=== PATIENT | female | born 1985 | race American Indian/Alaskan Native ===

== ENCOUNTER 2017-05-29 01:20 | Emergency (ER) | payer BC, OTHER ==
[2017-05-29 01:31] VITALS: BP 131/78
[2017-05-29] MEDS ORDERED: ULTRAM PO ONE (01:52)
--- NOTE | 2017-05-29 02:11 | Emergency Department Report ---
ED ENT HPI - General Chief complaint: Dental/Oral Stated complaint: TOOTHACHE Time Seen by Provider: 05/29/17 01:47 Source: patient Mode of arrival: Ambulatory Limitations: No Limitations - History of Present Illness Initial comments: dental pain x 2 week hx infected dental carries complaint: tooth pain Onset/Timin -: week(s) Location: tooth # (19) Severity: moderate Severity scale (0 -10): 5 Quality: aching Consistency: constant Improves with: none Worsens with: other (hot cold sensation) Associated Symptoms: toothache. denies: fever, cough, gum swelling, pain with swallowing, sore throat, tinnitus, hearing loss, discharge from ear, rhinorrhea - Related Data Previous Rx's Medication Instructions Recorded Last Taken Type Amoxicillin 500 mg PO TID #30 capsule 05/29/17 Unknown Rx Chlorhexidine Mouthwash [Peridex] 15 ml MM BID #1 bottle 05/29/17 Unknown Rx traMADol [Ultram 50 MG tab] 50 mg PO Q8HR PRN #20 tablet 05/29/17 Unknown Rx Allergies Allergy/AdvReac Type Severity Reaction Status Date / Time epidural Allergy Itching Uncoded 05/29/17 01:32 ED Dental HPI - General Chief complaint: Dental/Oral Stated complaint: TOOTHACHE Time Seen by Provider: 05/29/17 01:47 Source: patient Mode of arrival: Ambulatory Limitations: No Limitations - Related Data Previous Rx's Medication Instructions Recorded Last Taken Type Amoxicillin 500 mg PO TID #30 capsule 05/29/17 Unknown Rx Chlorhexidine Mouthwash [Peridex] 15 ml MM BID #1 bottle 05/29/17 Unknown Rx traMADol [Ultram 50 MG tab] 50 mg PO Q8HR PRN #20 tablet 05/29/17 Unknown Rx Allergies Allergy/AdvReac Type Severity Reaction Status Date / Time epidural Allergy Itching Uncoded 05/29/17 01:32 ED Review of Systems ROS: Stated complaint: TOOTHACHE Other details as noted in HPI Constitutional: denies: chills, fever Eyes: denies: eye pain, eye discharge, vision change ENT: dental pain Respiratory: denies: cough, shortness of breath, wheezing Cardiovascular: denies: chest pain, palpitations Endocrine: no symptoms reported Gastrointestinal: denies: abdominal pain, nausea, diarrhea Genitourinary: denies: urgency, dysuria, discharge Musculoskeletal: denies: back pain, joint swelling, arthralgia Skin: denies: rash, lesions Neurological: denies: headache, weakness, paresthesias Psychiatric: denies: anxiety, depression Hematological/Lymphatic: denies: easy bleeding, easy bruising ED Past Medical Hx - Past Medical History Previous Medical History?: No - Surgical History Additional Surgical History: C-secdtion X3 - Social History Smoking Status: Never Smoker Substance Use Type: None - Medications Home Medications: Home Medications Medication Instructions Recorded Confirmed Last Taken Type Amoxicillin 500 mg PO TID #30 capsule 05/29/17 Unknown Rx Chlorhexidine Mouthwash [Peridex] 15 ml MM BID #1 bottle 05/29/17 Unknown Rx traMADol [Ultram 50 MG tab] 50 mg PO Q8HR PRN #20 tablet 05/29/17 Unknown Rx ED Physical Exam - General Limitations: No Limitations General appearance: alert, in no apparent distress - Head Head exam: Present: atraumatic, normocephalic - Eye Eye exam: Present: normal appearance - ENT ENT exam: Present: normal exam, mucous membranes moist, TM's normal bilaterally , normal external ear exam - Expanded ENT Exam Expanded Mouth exam: Present: tongue normal. Absent: trismus Teeth exam: Present: dental caries, dental tenderness # (19) Throat exam: Positive: tonsillar erythema. Negative: tonsillomegaly, tonsillar exudate, R peritonsillar mass, L peritonsillar mass - Neck Neck exam: Present: normal inspection - Respiratory Respiratory exam: Present: normal lung sounds bilaterally. Absent: respiratory distress, wheezes, rhonchi, stridor - Cardiovascular Cardiovascular Exam: Present: regular rate, normal rhythm. Absent: systolic murmur, diastolic murmur, rubs, gallop - GI/Abdominal GI/Abdominal exam: Present: soft, normal bowel sounds - Rectal Rectal exam: Present: deferred - Extremities Exam Extremities exam: Present: normal inspection, normal capillary refill - Back Exam Back exam: Present: normal inspection - Neurological Exam Neurological exam: Present: alert, oriented X3 - Psychiatric Psychiatric exam: Present: normal affect, normal mood - Skin Skin exam: Present: warm, dry, intact, normal color. Absent: rash ED Course Vital Signs 05/29/17 01:27 Temperature 98.4 F Pulse Rate 71 Respiratory 16 Rate Blood Pressure 131/78 O2 Sat by Pulse 100 Oximetry ED Medical Decision Making - Medical Decision Making pt is a 32 y/o aaf with hx of dental carries who presents for dental pain x 1 week this is a recurrent condition, there is no fever no chills no trismus no ear or throat pain no gum of facial swelling noted dental carries to #19, plan: amoxicillin , tramadol, peridex, pt will follow up with dentist jaison will call tomorrow to setup appointment pt verbalized agreement and understanding with same, pt improved with tramadol given in ed pt for dc to self in stable condition at this time. Critical care attestation.: If time is entered above; I have spent that time in minutes in the direct care of this critically ill patient, excluding procedure time. ED Disposition Clinical Impression: Infected dental carries Disposition: DC-01 TO HOME OR SELFCARE Is pt being admited?: No Does the pt Need Aspirin: No Condition: Good Instructions: Dental Caries (ED) Additional Instructions: follow up with your dentist jaison call tomorrow to setup appointment as discussed and agreed Prescriptions: Amoxicillin 500 mg PO TID #30 capsule Chlorhexidine Mouthwash [Peridex] 15 ml MM BID #1 bottle traMADol [Ultram 50 MG tab] 50 mg PO Q8HR PRN #20 tablet PRN Reason: Pain Forms: Work/School Release Form(ED) Time of Disposition: 02:13
== END 2017-05-29 02:24 | disposition home or self-care (01) ==
LOC: ED 01:20
DX: K02.9 Dental caries, unspecified (principal)
CPT/HCPCS: 99282